=== PATIENT | male | born 1945 | race Caucasian/White ===

== ENCOUNTER 2019-08-11 05:46 | Day surgery (SDC) | payer MEDICARE, BC ==
[2019-08-07 15:27] VITALS: BMI 25.6
[2019-08-11] MEDS ORDERED: ASPIRIN 325 MG TAB PO STA (05:55)
[2019-08-11] MEDS ORDERED: NITROGLYCERIN SL TABS 0.4 MG TAB SUBLINGUAL PRN (05:55)
[2019-08-11] MEDS ORDERED: ALPRAZolam 0.25 MG TAB PO PRN (05:55)
[2019-08-11] MEDS ORDERED: ATORVASTATIN 80 MG TAB PO STA (05:55)
[2019-08-11] MEDS ORDERED: ALPRAZolam 0.5 MG TAB PO PRN (05:55)
[2019-08-11] MEDS ORDERED: SODIUM CHLORIDE 0.9% 1,000 ML in EMPTY BAG 1 BAG IV ONE (05:55)
[2019-08-11] MEDS ORDERED: ASPIRIN 81 MG ONE (06:14)
[2019-08-11 06:36] VITALS: TEMP 97.6
[2019-08-11 06:36] LABS: Basophils # (A) 0.1 k/uL (0-0.2); Basophils % (A) 1 %; Eosinophils # (A) 0.2 k/uL (0-0.7); Eosinophils % (A) 3 %; HCT 39.3 % (39.0-53.0); HGB 13.4 gm/dL (13.0-17.5); Lymphocytes # (A) 1.3 k/uL (1.0-4.8); Lymphocytes % (A) 17 %; MCH 31.9 pg (25.0-35.0); MCHC 34.1 g/dL (31.0-37.0); MCV 93.6 fL (80.0-100.0); Mean Platelet Volume 7.2; Monocytes # (A) 0.3 k/uL (0-1.0); Monocytes % (A) 4 %; Neutrophils # (A) 5.5 k/uL (1.3-7.7); Neutrophils % (A) 75 %; Platelet Count 179 k/uL (150-450); RDW 13.2 % (11.5-15.5); WBC 7.4 k/uL (3.8-10.6)
[2019-08-11 06:46] LABS: African American GFR (CKD) >90 (>60 ml/min/1.73 sqM); Anion Gap 9 mmol/L; Blood Urea Nitrogen 21 mg/dL (9-20); Calcium 9.5 mg/dL (8.4-10.2); Carbon Dioxide 28 mmol/L (22-30); Chloride 105 mmol/L (98-107); Glucose 118 mg/dL (74-99); Non-African American GFR(CKD) 86 (>60 ml/min/1.73 sqM); Potassium 3.7 mmol/L (3.5-5.1); Sodium 142 mmol/L (137-145)
[2019-08-11] MEDS ORDERED: LIDOCAINE 1% INJ 10MG/ML (20 ML MDV) ONE (07:17)
[2019-08-11] MEDS ORDERED: HEPARIN SODIUM 1,000 UN/ML (10ML VL) ONE (07:17)
[2019-08-11] MEDS ORDERED: VERAPAMIL 2.5 MG/ML 2 ML AMP ONE (07:17)
[2019-08-11] MEDS ORDERED: MIDAZOLAM 2 MG/2 ML VIAL IVP ONE (07:22)
[2019-08-11] MEDS ORDERED: fentaNYL (PF) 50 MCG/ML 2 ML AMP ONE (07:25)
[2019-08-11] MEDS ORDERED: LIDOCAINE 1% INJ 10MG/ML (20 ML MDV) SQ ONE (07:26)
[2019-08-11] MEDS ORDERED: fentaNYL (PF) 50 MCG/ML 2 ML AMP IV ONE (07:26)
[2019-08-11] MEDS: VERAPAMIL SYRINGE (5 MG/10 ML) INTRAARTER ONE ×2 (07:28→07:46)
[2019-08-11] MEDS ORDERED: HEPARIN SODIUM 1,000 UN/ML (10ML VL) IV ONE (07:30)
[2019-08-11] MEDS ORDERED: NITROGLYCERIN SL TABS 0.4 MG TAB SUBLINGUAL ONE ×2 (07:41→07:42)
[2019-08-11] MEDS ORDERED: IOPAMIDOL-370 100ML BTL INJ ONE (07:46)
[2019-08-11] MEDS ORDERED: LISINOPRIL 10 MG TAB PO STA (08:12)
[2019-08-11] MEDS ORDERED: CARVEDILOL 3.125 MG TAB PO STA (08:13)
[2019-08-11] MEDS ORDERED: SODIUM CHLORIDE 0.9% 1,000 ML IV SCH (08:15)
[2019-08-11 08:18] VITALS: RESP 16
--- NOTE | 2019-08-11 08:36 | CC ---
CARDIAC CATHETERIZATION REPORT DATE OF SERVICE: 08/11/2019 PROCEDURE: Left heart catheterization and coronary angiography. PERFORMED BY: Dr. Nanda Lofton. Moderate conscious sedation time was 26 minutes. Patient was administered Versed and fentanyl. His oxygen saturation, hemodynamics and EKG were monitored closely. CLINICAL INFORMATION: Mr. Ren Lopez is a 74-year-old gentleman with history of hypertension, hyperlipidemia, and past history of smoking who also had a previous aortic stent grafting and iliac stenting performed several years ago. He had a recently positive stress test and therefore his elective hernia surgery was cancelled and I saw him because of abnormal stress test. Risks, benefits, options, rationale were explained and he was advised cardiac catheterization. PROCEDURE NOTE: Under local anesthesia and strict aseptic precautions, a 6-Jordanian introducer was placed in the right radial artery. Using a JL4.0, and JR4.0 catheters, I performed selective coronary angiography. Aortic root was slightly large. LV pressures were checked but LV gram was not performed. The sheath was taken out and TR band applied as per protocol with good saturation to the fingers of the right hand. CARDIAC CATHETERIZATION FINDINGS: Left ventricular end-diastolic pressure was about 10 to 12 mmHg without any gradient across the aortic valve. CORONARY ANGIOGRAPHY FINDINGS: RIGHT CORONARY ARTERY: This is a dominant vessel that is actually totally occluded in the proximal portion after a conus branch. The vessel is chronically occluded and there are some bridging collaterals that seem to slowly fill. Actually, it is almost ipsilateral collaterals that are opacifying the entire RCA in the mid and distal portion with some competitive flow and distally it gives off what seems to be the PDA branch. RCA therefore is totally occluded, filled by a bridging ipsilateral collaterals and also there is competitive flow. The conus branch is free of significant disease. Distal RCA seems to have mild diffuse disease. However, this chronic total occlusion is a long area of chronic total occlusion and the filling seems to be happening from what seems to be collaterals coming from the small branches of RCA. LEFT MAIN CORONARY ARTERY: This is a short patent vessel free of significant disease that immediately bifurcates into LAD and circumflex. No significant disease in the left main. LEFT ANTERIOR DESCENDING CORONARY ARTERY: Good caliber vessel extends along the anterior wall, has minor irregularities, no significant disease, supplies a sizable amount of myocardium. It gives off a very high diagonal branch in the proximal portion. The diagonal branch gives off 2 additional branches as it runs distally. There is about a 30% to 45% narrowing in the diagonal branches, but LAD itself is free of significant disease. LEFT POSTERIOR CIRCUMFLEX CORONARY ARTERY: Technically nondominant vessel gives off a large obtuse marginal and gives a distal posterolateral branch and that gives off smaller secondary branches. No significant disease in the entire circumflex. The distal circumflex gives off lot of collateral branches to the RCA and the 2 branches of RCA are filled. The PDA branch can be entirely opacified by the collateral circulation. The LAD which is free of significant disease also provides good network of collaterals to the distal RCA. LEFT VENTRICULOGRAM: Left ventriculogram was not performed. 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 The conus branch is free of significant disease. 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 The left main is free of significant disease. LAD is free of significant disease. The diagonal branch has a 30% to 45% narrowing in the branches. Circumflex is nondominant disease free. Rich network of collaterals opacify the entire distal RCA and branches. Left ventriculogram was not performed. RECOMMENDATIONS: Findings were discussed with the patient and . I am recommending continued aggressive medical therapy with increase in beta blockers and statins. No revascularization is necessary and I explained to the patient that the L TACKER is technically difficult to open as well. We will pursue medical therapy for now and I will clear him for his hernia surgery indicating to him that the risk is moderate. Optimal BP control, increase in beta blockers and patient can proceed with the right inguinal hernia repair with a moderate risk. This note will go to his primary care physician as well as to his surgeon. MMODL / IJN: [id number] /
[2019-08-11 11:54] VITALS: BP 159/83; PULSE 84
--- NOTE | 2019-08-11 13:00 | ECHOF ---
Referral Reason:LV function MEASUREMENTS -------- HEIGHT: 182.9 cm WEIGHT: 86.2 kg BP: 154/99 RVIDd: 3.6 cm (< 3.3) IVSd: 1.4 cm (0.6 - 1.1) LVIDd: 4.1 cm (3.9 - 5.3) LVPWd: 1.4 cm (0.6 - 1.1) IVSs: 1.8 cm LVIDs: 2.8 cm LVPWs: 1.8 cm LA Diam: 3.8 cm (2.7 - 3.8) Ao Diam: 4.1 cm (2.0 - 3.7) AV Cusp: 2.0 cm (1.5 - 2.6) MV EXCURSION: 19.089 mm (> 18.000) MV EF SLOPE: 37 mm/s (70 - 150) EPSS: 0.2 cm MV E Vicente: 0.75 m/s MV DecT: 211 ms MV A Vicente: 1.32 m/s MV E/A Ratio: 0.57 TAPSE: 22.13 mm FINDINGS -------- Sinus rhythm. This was a technically good study. The left ventricular size is normal. There is moderate concentric left ventricular hypertrophy. O verall left ventricular systolic function is normal with, an EF between 60 - 65 %. The right ventricle is mild to moderately enlarged. The left atrial size is normal. The right atrium is normal in size. Interatrial and interventricular septum intact. There is mild aortic valve sclerosis. There is trace mitral regurgitation. No regurgitation noted There is no pulmonic regurgitation present. The aortic root is dilated measuring 4.1cm. The inferior vena cava is mildly dilated. There is no pericardial effusion. CONCLUSIONS -------- 1. Sinus rhythm. 2. This was a technically good study. 3. The left ventricular size is normal. 4. There is moderate concentric left ventricular hypertrophy. 5. Overall left ventricular systolic function is normal with, an EF between 60 - 65 %. 6. The right ventricle is mild to moderately enlarged. 7. The left atrial size is normal. 8. The right atrium is normal in size. 9. Interatrial and interventricular septum intact. 10. There is mild aortic valve sclerosis. 11. There is trace mitral regurgitation. 12. No regurgitation noted 13. There is no pulmonic regurgitation present. 14. The aortic root is dilated measuring 4.1cm. 15. The inferior vena cava is mildly dilated. 16. There is no pericardial effusion. NUMERICAL CONTROL NESTING OPERATOR: Cally Choi RDCS
== END 2019-08-11 14:00 | disposition home or self-care (01) ==
LOC: CATHCVL 05:46
PROVIDERS: ATTEND Internal Medicine Interventional Cardiology
DX: I25.110 Atherosclerotic heart disease of native coronary artery with unstable angina pectoris (principal); I11.9 Hypertensive heart disease without heart failure; I35.8 Other nonrheumatic aortic valve disorders; E78.00 Pure hypercholesterolemia, unspecified; E78.5 Hyperlipidemia, unspecified; R06.83 Snoring; R06.00 Dyspnea, unspecified; M25.50 Pain in unspecified joint; R09.89 Other specified symptoms and signs involving the circulatory and respiratory systems; I71.4 Abdominal aortic aneurysm, without rupture; I74.09 Other arterial embolism and thrombosis of abdominal aorta; F17.210 Nicotine dependence, cigarettes, uncomplicated; Z95.828 Presence of other vascular implants and grafts; Z79.899 Other long term (current) drug therapy; Z79.890 Hormone replacement therapy; Z79.891 Long term (current) use of opiate analgesic; Z79.82 Long term (current) use of aspirin; Z88.2 Allergy status to sulfonamides; Z85.46 Personal history of malignant neoplasm of prostate
CPT/HCPCS: 93306; 93458; 80048; 85025; C1769; C1894; J2250; J2001; J3010; J1644; Q9967